=== PATIENT | female | born 1975 | race Caucasian/White ===

== ENCOUNTER 2018-06-24 13:54 | Emergency (ER) | payer OTHER ==
[~2018-06-24] VITALS: Ht 157.5 cm; Wt 108.9 kg
[2018-06-24] MEDS ORDERED: SYNTHROID175 MCG PO (14:07)
== END 2018-06-24 16:34 | disposition home or self-care (01) ==
LOC: ER 13:54
DX: J45.998 Other asthma (principal)

== ENCOUNTER 2020-04-22 14:08 | Emergency (ER) | payer OTHER ==
[~2020-04-22] VITALS: Ht 157.5 cm; Wt 90.7 kg
[~2020-04-22 14:08] MED LIST: SYNTHROID175 MCG PO
[2020-04-22] MEDS ORDERED: MECLIZINE HCL25 MG PO (17:38)
== END 2020-04-22 19:55 | disposition home or self-care (01) ==
LOC: ER 14:08
DX: R42 Dizziness and giddiness (principal); Z03.818 Encounter for observation for suspected exposure to other biological agents ruled out

== ENCOUNTER 2023-01-30 09:53 | Outpatient (CLI) | payer OTHER ==
[~2023-01-30 09:53] MED LIST changes: +MECLIZINE HCL25 MG PO
== END 2023-01-30 14:15 | disposition home or self-care (01) ==
LOC: TOM 09:53
PROVIDERS: ATTEND General Practice
DX: N28.89 Other specified disorders of kidney and ureter (principal)